=== PATIENT | male | born 1995 | race Caucasian/White ===

== ENCOUNTER 2020-07-02 07:12 | Emergency (ER) | payer BC ==
[~2020-07-02 07:12] MED LIST: NORCO 5-325 TA1 EACH PO
[2020-07-02 07:47] LABS: HEMOGLOBIN 15.4 gm/dl (14.0-17.5); RED BLOOD COUNT 5.4 M/UL (4.20-5.50); WHITE BLOOD COUNT 7.7 K/UL (4.5-11.0)
[2020-07-02 08:01] LABS: BUN/CREATININE RATIO 21 (0-10)
[2020-07-02] MEDS ORDERED: IBU600 MG PO (09:31)
== END 2020-07-02 09:30 | disposition home or self-care (01) ==
LOC: ER1 07:12
PROVIDERS: Internal Medicine
DX: R10.32 Left lower quadrant pain (principal); R11.0 Nausea; Z86.73 Personal history of transient ischemic attack (TIA), and cerebral infarction without residual deficits; Z90.49 Acquired absence of other specified parts of digestive tract
CPT/HCPCS: 36415; 80048; 81001; 83690; 85025; 96374; 96375; 99284; J1885; J2405